=== PATIENT | male | born 1930 | race Caucasian/White ===

== ENCOUNTER 2017-03-07 22:25 | Emergency (ER) | payer MEDICARE ==
[~2017-03-07] VITALS: Ht 195.6 cm; Wt 108.9 kg
[~2017-03-07 22:25] MED LIST: ASPI-630 PO; CHOL500045 PO; CRESTOR5 MG PO; FOLI1TAB16 PO; METR55GE TP; OMEP20CA5 PO; POTA10TA17 PO; TAMS0.4C97 PO; WHEA1POW5 PO
[2017-03-07 22:30] VITALS: BP 123/54
--- NOTE | 2017-03-07 22:40 | ED.ADGEN ---
Past History Past Medical History: Arrhythmia, GERD, High Cholesterol, Heart Disease, Kidney Stones, Other Past Surgical History: Cancer Surgery, Colectomy, Other Smoking: Non-smoker Alcohol Use: Rarely Drug Use: None Adult General Chief Complaint Chief Complaint Nelson catheter not functioning [facility] HPI Patient is a 86 year old male who presents with for catheter not working. He states that he had a bladder stone that was worked on for 6 days ago and then Thursday there when he got his catheter but he still had some bleeding. His urologist Dr. Paz at [place]. Tonight about 9:30 he noticed no urine output from his catheter. He states the catheter had some faint pink urine prior to stopping. He denied any fevers chills nausea vomiting. He did have suprapubic discomfort. Review of Systems Review of Systems Constitutional: Denies fever or chills [] Eyes: Denies change in visual acuity, redness, or eye pain [] HENT: Denies nasal congestion or sore throat [] Respiratory: Denies cough or shortness of breath [] Cardiovascular: No additional information not addressed in HPI [] GI: Denies nausea, vomiting, bloody stools or diarrhe, positive for adominal pain [] : Denies dysuria positive for hematuria Musculoskeletal: Denies back pain or joint pain [] Integument: Denies rash or skin lesions [] Neurologic: Denies headache, focal weakness or sensory changes [] Endocrine: Denies polyuria or polydipsia [] Allergies Allergies Allergies Coded Allergies Type Severity Reaction Last Updated Verified penicillin Allergy Unknown 03/07/17 No Physical Exam Physical Exam Constitutional: Well developed, well nourished, no acute distress, non-toxic appearance. [] HENT: Normocephalic, atraumatic, bilateral external ears normal, oropharynx moist, no oral exudates, nose normal. [] Eyes: PERRLA, EOMI, conjunctiva normal, no discharge. [] Neck: Normal range of motion, no tenderness, supple, no stridor. [] Cardiovascular:Heart rate regular rhythm, no murmur [] Lungs & Thorax: Bilateral breath sounds clear to auscultation [] Abdomen: Bowel sounds normal, soft, no tenderness, no masses, no pulsatile masses. [] Skin: Warm, dry, no erythema, no rash. [] Back: No tenderness, no CVA tenderness. [] Extremities: No tenderness, no cyanosis, no clubbing, ROM intact, no edema. [] Neurologic: Alert and oriented X 3, normal motor function, normal sensory function, no focal deficits noted. [] Psychologic: Affect normal, judgement normal, mood normal. [] Current Patient Data Vital Signs Vital Signs Date Time Temp Pulse Resp B/P (MAP) Pulse Ox O2 Delivery O2 Flow Rate FiO2 03/07/17 22:30 98.5 67 20 95 Room Air Lab Results Laboratory Tests Test 03/07/17 23:20 White Blood Count 5.2 x10^3/uL (4.0-11.0) Red Blood Count 3.37 x10^6/uL (4.30-5.70) L Hemoglobin 12.1 g/dL (13.0-17.5) L Hematocrit 35.1 % (39.0-53.0) L Mean Corpuscular Volume 104 fL (79-100) H Mean Corpuscular Hemoglobin 36 pg (25-35) H Mean Corpuscular Hemoglobin Concent 34 g/dL (31-37) Red Cell Distribution Width 14.3 % (11.5-14.5) Platelet Count 304 x10^3/uL (140-400) Neutrophils (%) (Auto) 61 % (31-73) Lymphocytes (%) (Auto) 23 % (24-48) L Monocytes (%) (Auto) 16 % (0-9) H Eosinophils (%) (Auto) 0 % (0-3) Basophils (%) (Auto) 0 % (0-3) Neutrophils # (Auto) 3.2 x10^3uL (1.8-7.7) Lymphocytes # (Auto) 1.2 x10^3/uL (1.0-4.8) Monocytes # (Auto) 0.8 x10^3/uL (0.0-1.1) Eosinophils # (Auto) 0.0 x10^3/uL (0.0-0.7) Basophils # (Auto) 0.0 x10^3/uL (0.0-0.2) Urine Collection Type Void Urine Color [place] Urine Clarity Hazy Urine pH 5.5 Urine Specific [place] <=1.005 Urine Protein 100 mg/dl (NEG-TRACE) Urine Glucose (UA) Neg mg/dL (NEG) Urine Ketones (Stick) Neg mg/dL (NEG) Urine Blood Large (NEG) Urine Nitrite Neg (NEG) Urine Bilirubin Neg (NEG) Urine Urobilinogen Dipstick 0.2 mg/dL (0.2 mg/dL) Urine Leukocyte Esterase Small (NEG) Urine RBC >40 /HPF (0-2) Urine WBC 5-10 /HPF (0-4) Urine Squamous Epithelial Cells Few /LPF Urine Bacteria Few /HPF (0-FEW) Sodium Level 143 mmol/L (136-145) Potassium Level 3.8 mmol/L (3.5-5.1) Chloride Level 105 mmol/L (98-107) Carbon Dioxide Level 27 mmol/L (21-32) Anion Gap 11 (6-14) Blood Urea Nitrogen 17 mg/dL (8-26) Creatinine 1.3 mg/dL (0.7-1.3) Estimated GFR (Cockcroft-Gault) 52.3 BUN/Creatinine Ratio 13 (6-20) Glucose Level 139 mg/dL (70-99) H Calcium Level 8.8 mg/dL (8.5-10.1) Total Bilirubin 0.7 mg/dL (0.2-1.0) Aspartate Amino Transferase (AST) 22 U/L (15-37) Alanine Aminotransferase (ALT) 36 U/L (16-63) Alkaline Phosphatase 79 U/L (46-116) Total Protein 7.0 g/dL (6.4-8.2) Albumin 3.9 g/dL (3.4-5.0) Albumin/Globulin Ratio 1.3 (1.0-1.7) EKG EKG [] Radiology/Procedures Radiology/Procedures [] Course & Med Decision Making Course & Med Decision Making Pertinent Labs and Imaging studies reviewed. (See chart for details) His for catheter was removed had blood clots blocking it. He was able to urinate afterwards. He feels much better now. At this point we'll leave the Nelson catheter out and he is to follow-up with Dr. Paz. He is instructed if he can't urinate and feels similar symptoms of distention to return back to ER. He still taking his Cipro and he was prescribed. Return precautions given his agreeable to the plan and being discharged in stable condition this time. Final Impression Final Impression Nelson catheter dysfunction Problems: Charlene Disclaimer Dragon Disclaimer This electronic medical record was generated, in whole or in part, using a voice recognition dictation system. IVAN TORRES MD Mar 07, 2017 22:40
[2017-03-07] MEDS ORDERED: CIPR500T94 PO (23:16)
[2017-03-07 23:54] LABS: BASO % 0 % (0-3); EOS % 0 % (0-3); HEMATOCRIT 35.1 % (39.0-53.0); HEMOGLOBIN 12.1 g/dL (13.0-17.5); LYMPH # 1.2 x10^3/uL (1.0-4.8); LYMPH % 23 % (24-48); MEAN CORPUSCULAR HEMOGLOBIN 36 pg (25-35); MEAN CORPUSCULAR HGB CONC 34 g/dL (31-37); MEAN CORPUSCULAR VOLUME 104 fL (79-100); MONO # 0.8 x10^3/uL (0.0-1.1); MONO % 16 % (0-9); NEUT # 3.2 x10^3uL (1.8-7.7); NEUT % 61 % (31-73); PLATELET COUNT 304 x10^3/uL (140-400); RED BLOOD COUNT 3.37 x10^6/uL (4.30-5.70); RED CELL DISTRIBUTION WIDTH 14.3 % (11.5-14.5); WHITE BLOOD COUNT 5.2 x10^3/uL (4.0-11.0)
[2017-03-08 00:06] LABS: BILIRUBIN,URINE NEG (NEG); CLARITY,URINE HAZY; COLOR,URINE PINK; GLUCOSE,URINE NEG (NEG)
[2017-03-08 00:07] LABS: NITRITE,URINE NEG (NEG); UROBILINOGEN,URINE 0.2 mg/dL (0.2 mg/dL)
[2017-03-08 00:10] LABS: ALBUMIN 3.9 g/dL (3.4-5.0); ALBUMIN/GLOBULIN RATIO 1.3 (1.0-1.7); CALCIUM 8.8 mg/dL (8.5-10.1); CREATININE 1.3 mg/dL (0.7-1.3); GFR 52.3; POTASSIUM 3.8 mmol/L (3.5-5.1); TOTAL BILIRUBIN 0.7 mg/dL (0.2-1.0)
[2017-03-08 00:14] LABS: RBC,URINE >40 /HPF (0-2)
[2017-03-08 00:15] LABS: BACTERIA,URINE FEW /HPF (0-FEW); SQUAMOUS EPITHELIAL CELL,UR FEW /LPF
== END 2017-03-08 00:11 | disposition home or self-care (01) ==
LOC: ER 22:25
DX: T83.098A Other mechanical complication of other urinary catheter, initial encounter (principal); E78.00 Pure hypercholesterolemia, unspecified; Z87.442 Personal history of urinary calculi; K21.9 Gastro-esophageal reflux disease without esophagitis; Z88.0 Allergy status to penicillin
CPT/HCPCS: 36415; 80053; 81001; 85027; 87086; 87186; 99284-25

== ENCOUNTER 2017-03-08 07:33 | Emergency (ER) | payer MEDICARE ==
[~2017-03-08 07:33] MED LIST changes: +CIPR500T94 PO
[2017-03-08] MEDS ORDERED: LIDOCAINE 2% JELLY 10ML IN APPLICATOR. ONE (07:40)
--- NOTE | 2017-03-08 07:50 | ED.ADGEN ---
Past History Past Medical History: Arthritis, Arrhythmia, Cancer, GERD, High Cholesterol, Heart Disease, Kidney Stones, Other Past Surgical History: Cancer Surgery, Colectomy, Knee Replacement, Other Smoking: Non-smoker Alcohol Use: Rarely Drug Use: None Adult General HPI HPI Patient is an 86-year-old man, with a remote history of prostate cancer treated with surgery in the , who is status post renal calculi treatment, presumed lithotripsy, on of last week with Dr. Paz. Patient had a Nelson catheter in place after the procedure, and presented to the emergency department last night with blockage of the catheter due to a blood clot. Patient had the catheter removed, was able to void at that time, catheter was left out of the point. Patient is being treated with ciprofloxacin by Dr. Paz currently. Patient states that since the removal of the catheter he is "dribbling urine", and feels pressure in his bladder also he needs to go. He denies any pain in his abdomen or back, any fevers or chills, any nausea or vomiting, any swelling extremities, any injuries, any further patches of blood clots, states that the urine is red tinged. He denies any pain in the penile area, any flank pain, any chest pain, shortness breath or other complaints. He states he contacted Dr. Paz this morning, and was told to come back to the emergency department for replacement of Nelson catheter. Patient has an appointment to follow up with Dr. Paz tomorrow morning. Review of Systems Review of Systems Constitutional: Denies fever or chills [] Eyes: Denies change in visual acuity, redness, or eye pain [] HENT: Denies nasal congestion or sore throat [] Respiratory: Denies cough or shortness of breath [] Cardiovascular: No additional information not addressed in HPI [] GI: Denies abdominal pain, nausea, vomiting, bloody stools or diarrhea [] : Denies dysuria, positive for hematuria and uncontrolled voiding. Musculoskeletal: Denies back pain or joint pain [] Integument: Denies rash or skin lesions [] Neurologic: Denies headache, focal weakness or sensory changes [] Endocrine: Denies polyuria or polydipsia [] Current Medications Current Medications Current Medications Medications (Trade) Dose Ordered Sig/Cisco Start Time Stop Time Status Last Admin Dose Admin Lidocaine HCl (Uro-Jet) 1 asia 1X ONCE 6/4/17 08:00 03/08/17 08:01 Allergies Allergies Allergies Coded Allergies Type Severity Reaction Last Updated Verified penicillin Allergy Unknown 03/07/17 No Physical Exam Physical Exam Constitutional: Well developed, well nourished, no acute distress, non-toxic appearance. [] HENT: Normocephalic, atraumatic, bilateral external ears normal, oropharynx moist, no oral exudates, nose normal. [] Eyes: PERRLA, EOMI, conjunctiva normal, no discharge. [] Neck: Normal range of motion, no tenderness, supple, no stridor. [] Cardiovascular:Heart rate regular rhythm, no murmur, S1, S2, rubs or gallops. [] Lungs & Thorax: Denies breath sounds at bases, no wheezing, rhonchi, rales. [] Abdomen: Bowel sounds normal, soft, no tenderness, no rebound, rigidity, no guarding, no masses, no pulsatile masses. [] Skin: Warm, dry, no erythema, no rash. [] Back: No tenderness, no CVA tenderness. [] Extremities: No tenderness, no cyanosis, no clubbing, ROM intact, no edema. [] Neurologic: Alert and oriented X 3, normal motor function, normal sensory function, no focal deficits noted. [] Psychologic: Affect normal, judgement normal, mood normal. [] examination: Patient has an adult diaper in place with a small amount of reddish yellow urine that is drained. Patient is uncircumcised, foreskin easily retracted, glans penis is normal in appearance, with no evidence of discharge, drainage erythema or lesions identified. No tenderness to palpation in the genital region. No lymphadenopathy or other concerning findings. EKG EKG Not indicated. [] Radiology/Procedures Radiology/Procedures Not indicated. [] Course & Med Decision Making Course & Med Decision Making Pertinent Labs and Imaging studies reviewed. (See chart for details) Patient well-appearing, no evidence of acute abnormality on examination, Urojet applied, with passage of a 20 [place] catheter. Urine is draining freely, yellow , red tinged. Laboratory studies from last night reviewed, patient with a creatinine of 1.3 with electrolytes within normal limits, hemoglobin of 12.2, with no leukocytosis or shift, urinalysis reveals RBCs, few WBCs and a few bacteria. As stated patient is on ciprofloxacin as prescribed by Dr. Paz. Instructed to continue antibiotic course as prescribed. We discussed concerning symptoms that prompt return to the emergency department for additional evaluation, patient voiced understanding and agreement. Patient discharged home in stable condition with plan to follow-up with Dr. Paz tomorrow morning at 10 AM, and to return to the ED if any complications with the catheter develop. Final Impression Final Impression [] Problems: Dragon Disclaimer Dragon Disclaimer This electronic medical record was generated, in whole or in part, using a voice recognition dictation system. Departure: Impression: Primary Impression: Urinary complication, postoperative Disposition: HOME, SELF-CARE Condition: IMPROVED PATI BENDER DO Mar 08, 2017 07:50
[2017-03-08] MEDS ORDERED: LIDOCAINE 2% JELLY 10ML IN APPLICATOR. MM ONE (08:00)
[2017-03-08 08:10] VITALS: BP 127/83
== END 2017-03-08 08:12 | disposition home or self-care (01) ==
LOC: ER 07:33
DX: N99.89 Other postprocedural complications and disorders of genitourinary system (principal); K21.9 Gastro-esophageal reflux disease without esophagitis; E78.00 Pure hypercholesterolemia, unspecified; M19.90 Unspecified osteoarthritis, unspecified site; Z87.442 Personal history of urinary calculi; Z90.49 Acquired absence of other specified parts of digestive tract; Z88.0 Allergy status to penicillin
CPT/HCPCS: 51702; 99284-25

== ENCOUNTER 2017-04-20 20:56 | Emergency (ER) | payer MEDICARE ==
[~2017-04-20] VITALS: Ht 193 cm; Wt 102.1 kg
[2017-04-20 21:25] VITALS: BP 149/92
--- NOTE | 2017-04-20 22:27 | PHYS DOC ---
Past History Past Medical History: Prostatitis Past Surgical History: Cancer Surgery, Colectomy, Knee Replacement, Other Smoking: Non-smoker Alcohol Use: None Drug Use: None Adult General Chief Complaint Chief Complaint: URINARY RETENTION HPI HPI Patient is a 86-year-old man who has a history of prostate cancer, radiation, surgery, urinary retention, presents with a concern for urinary retention today. He had blood in his urine and then has not been able to urinate since this morning. He believes there may be a blood clot in his urethra. In the past , he has needed a Nelson when this happened. The patient happens to have a urology clinic appointment tomorrow. Review of Systems Review of Systems Constitutional: Denies fever or chills [] : As in history of present illness Allergies Allergies Allergies Coded Allergies Type Severity Reaction Last Updated Verified penicillin Allergy Unknown 04/20/17 No Physical Exam Physical Exam Constitutional: Well developed, well nourished, no acute distress, non-toxic appearance. Alert, mentating normally, no acute distress. Abdomen: Soft, nondistended, nontender : Circumcised male. No blood at meatus. Skin: Warm, dry, no erythema, no rash. [] Extremities: No tenderness, no cyanosis, no clubbing, ROM intact Neurologic: Alert and oriented X 3, normal motor function, normal sensory function, no focal deficits noted. [] Current Patient Data Vital Signs Vital Signs Date Time Temp Pulse Resp B/P (MAP) Pulse Ox O2 Delivery O2 Flow Rate FiO2 04/20/17 21:25 98.2 71 20 96 Room Air EKG EKG [] Radiology/Procedures Radiology/Procedures [] Course & Med Decision Making Course & Med Decision Making Pertinent Labs and Imaging studies reviewed. (See chart for details) Nelson catheter was placed by ED nursing staff. Urine appears cloudy to moderately bloody, no large clots are noted. Urine did flow freely into the Nelson bag. UA negative for UTI. Patient has an appointment with his urologist tomorrow. We talked about staying well-hydrated to keep his urine flowing freely. I offered him IV fluids but he thought he would rather drink fluids. [] Dragon Disclaimer Dragon Disclaimer This chart was dictated in whole or in part using Voice Recognition software in a busy, high-work load, and often noisy Emergency Department environment. It may contain unintended and wholly unrecognized errors or omissions. Departure Departure: Impression: Primary Impression: Acute urinary retention Additional Impression: Hematuria Disposition: 01 HOME, SELF-CARE Condition: IMPROVED Referrals: JOSE ARMANDO DONAHUE (PCP) Additional Instructions: As we discussed, drink plenty of fluids to keep your urine flowing freely to help keep blood clots from forming. If possible, drink 4-8 ounces of fluid every 2 hours or so overnight. See your urologist tomorrow as planned. Be sure to keep the catheter bag below the level of your bladder at all times so it can drain with gravity. Problem Qualifiers LALA PAVON MD Apr 20, 2017 22:27
[2017-04-20 22:35] LABS: BILIRUBIN,URINE NEG (NEG); CLARITY,URINE TURBID; COLOR,URINE BROWN; GLUCOSE,URINE NEG (NEG)
[2017-04-20 22:36] LABS: BACTERIA,URINE 0 /HPF (0-FEW); NITRITE,URINE NEG (NEG); RBC,URINE TNTC /HPF (0-2); UROBILINOGEN,URINE 0.2 mg/dL (0.2 mg/dL); WBC,URINE 0 /HPF (0-4)
== END 2017-04-20 23:05 | disposition home or self-care (01) ==
LOC: ER 20:56
DX: R33.9 Retention of urine, unspecified (principal); R31.9 Hematuria, unspecified; Z88.0 Allergy status to penicillin
CPT/HCPCS: 51702; 81001; P9612; 99284-25

== ENCOUNTER → 2017-05-22 | Outpatient (CLI) | payer MEDICARE, BC ==
--- NOTE | 2017-05-22 14:57 | RAD ---
Right RIBS with chest, 3 views, 05/22/2017: History: Fall, pain There is a chronic defect in the lateral aspect of the right seventh rib which is probably postsurgical. There is mild overlying pleural thickening. No acute rib abnormality is detected. There is no evidence of underlying pneumothorax, hemothorax or pulmonary infiltrate. The heart is mildly enlarged. There is calcific plaquing and tortuosity of the thoracic aorta. There are moderate scattered spurs in the spine. IMPRESSION: 1. 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 2. No acute right rib abnormality is detected.
== END | disposition home or self-care (01) ==
LOC: DXRADRC 14:25
PROVIDERS: ATTEND Physician Assistant
DX: I51.7 Cardiomegaly (principal); M95.4 Acquired deformity of chest and rib; R07.81 Pleurodynia; M25.511 Pain in right shoulder; I70.0 Atherosclerosis of aorta; W19.XXXA Unspecified fall, initial encounter; Y93.89 Activity, other specified; Y92.89 Other specified places as the place of occurrence of the external cause; Y99.8 Other external cause status
CPT/HCPCS: 71101

== ENCOUNTER → 2017-08-07 | Outpatient (CLI) | payer MEDICARE ==
--- NOTE | 2017-08-07 10:35 | RAD ---
CT of the paranasal sinuses without contrast, 08/07/2017: History: Recurrent sinusitis Noncontrast scans were obtained with multiplanar reconstructions produced. There is extensive mucosal thickening in both maxillary sinuses, involving the ostiomeatal complexes bilaterally. There is moderate mucosal thickening in both ethmoid sinuses and the left sphenoid sinus. There is mucosal thickening in both frontal sinuses, more so on the right. Air-fluid levels are present, best seen in both maxillary sinuses and the right frontal sinus. No underlying bony abnormality is detected. There is slight deviation of the nasal septum to the left of midline. The orbital contents are unremarkable. IMPRESSION: Extensive paranasal pansinusitis as described above. PQRS Compliance Statement: One or more of the following individualized dose reduction techniques were utilized for this examination: 1. Automated exposure control 2. Adjustment of the mA and/or kV according to patient size 3. Use of iterative reconstruction technique
== END | disposition home or self-care (01) ==
LOC: CT 10:06
PROVIDERS: ATTEND Physician Assistant
DX: J32.0 Chronic maxillary sinusitis (principal); J32.4 Chronic pansinusitis; J34.2 Deviated nasal septum
CPT/HCPCS: 70486

== ENCOUNTER → 2017-09-22 | Outpatient (CLI) | payer MEDICARE ==
--- NOTE | 2017-09-22 11:09 | RAD ---
Indication: Sinusitis. Axial imaging through the paranasal sinuses was performed without contrast. Sagittal and coronal reformations were also performed. Comparison is made with prior CT of the sinuses from 08/07/2017. Moderate mucosal thickening of the frontal sinus is noted, similar to prior exam. There is also fairly significant mucosal thickening and opacification of bilateral ethmoid air cells, similar to prior exam. Minimal mucosal thickening of the sphenoid sinus is seen, similar to perhaps minimally improved since prior. There is mucosal thickening of bilateral maxillary sinuses. There has been some improvement in the right maxillary sinus which is more aerated on today's study. There has also been some improvement in the left maxillary sinus with less mucosal thickening. The ostiomeatal complexes again show abnormal thickening. The mastoids are well aerated. Impression: Overall mild improvement in sinusitis when compared with examination from 08/07/2017. In particular, there is improved aeration to the maxillary sinuses. However, moderate paranasal sinus disease remains. PQRS Compliance Statement: One or more of the following individualized dose reduction techniques were utilized for this examination: 1. Automated exposure control 2. Adjustment of the mA and/or kV according to patient size 3. Use of iterative reconstruction technique
== END | disposition home or self-care (01) ==
LOC: CT 10:26
PROVIDERS: ATTEND Physician Assistant
DX: J32.4 Chronic pansinusitis (principal)
CPT/HCPCS: 70486

== ENCOUNTER 2017-12-13 15:01 | Emergency (ER) | payer MEDICARE ==
[~2017-12-13] VITALS: Ht 193 cm; Wt 102.1 kg
[2017-12-13 15:12] VITALS: BP 114/83
[2017-12-13] MEDS ORDERED: IV NORMAL SALINE 1,000ML 1,000 ML IV SCH (15:26)
--- NOTE | 2017-12-13 15:37 | PHYS DOC ---
Past History Past Medical History: Cancer, Prostatitis Additional Past Medical Histor: thrombocytopenia Past Surgical History: Cancer Surgery, Colectomy, Knee Replacement, Other Smoking: Non-smoker, Cigarettes, Quit Greater Than 1 Year Alcohol Use: None Drug Use: None Adult General Chief Complaint Chief Complaint: FEVER [facility] HPI Patient is a pleasant 87-year-old male who is complaining of fever and myalgias for last several days. Patient was seen and screened on for similar symptoms had a negative flu swab in the office of his primary care doctor is supposed to undergo sinus surgery tomorrow but given his symptoms and continued fevers to 102 at home patient decided to come to the hospital. All last several days. Has developed increasingly productive cough with nasal congestion and mild sore throat with cough. He denies any ear pain or ear drainage, his fevers only been 102 orally at home and is been taking Tylenol to treat those fevers. Patient admits he is on Lupron every 3 months for his prostate cancer he is not on active chemotherapy or otherwise this time. Patient met he also is on hydroxyurea for essential tremors cytopenia. Patient is not on any kind of treatment for hypertension, hyperlipidemia or diabetes. Patient has had sick contacts home especially flu with his in the last several weeks. He is on antibiotics would not in the last 4-6 weeks. Is not on steroids at this time he is on probiotics only. He denies any specific joint pain he just aches everywhere. He describes more myalgias and generalized weakness with this fever. He has no headache no focal neurologic deficits and no change in vision. Patient has had no other change in mental status with the at the bedside Review of Systems Review of Systems Constitutional: Positive for fevers and chills Eyes: Denies change in visual acuity, redness, or eye pain [] HENT: Positive for nasal congestion negative for sore throat[] Respiratory: Positive for productive cough negative for shortness of breath[] Cardiovascular: No additional information not addressed in HPI [] GI: Denies abdominal pain, nausea, vomiting, bloody stools or diarrhea [] : Denies dysuria or hematuria [] Musculoskeletal: Positive for generalized myalgias and joint pains[] Integument: Denies rash or skin lesions positive for diaphoresis [] Neurologic: Denies headache, focal weakness or sensory changes positive for generalized weakness with no focal neurologic deficits[] Endocrine: Denies polyuria or polydipsia [] All other systems were reviewed and found to be within normal limits, except as documented in this note. Current Medications Current Medications Current Medications Medications (Trade) Dose Ordered Sig/Cisco Start Time Stop Time Status Last Admin Dose Admin Ibuprofen (Motrin) 200 mg 1X ONCE 12/13/17 15:30 12/13/17 15:31 UNV Sodium Chloride (Normal Saline Flush) 10 ml QSHIFT PRN 12/13/17 15:30 UNV Allergies Allergies Allergies Coded Allergies Type Severity Reaction Last Updated Verified penicillin Allergy Unknown 04/20/17 No Physical Exam Physical Exam Patient is afebrile on exam but is fairly diaphoretic, he is also mildly hypertensive which is new for patient patient is not tachycardic or tachypneic. Constitutional: Well developed, well nourished, no acute distress, non-toxic appearance. Patient shows mild diaphoresis and mildly pale but in no acute distress [] HENT: Normocephalic, atraumatic, bilateral external ears normal, oropharynx dry with erythema but no tonsillar hypertrophy , no oral exudates, nose clear rhinorrhea without evidence of boggy turbinates, TMs are clear bilaterally[] Eyes: PERRLA, EOMI, conjunctiva normal, no discharge. [] Neck: Normal range of motion, no tenderness, supple, no stridor. No cervical lymphadenopathy [] Cardiovascular:Heart rate regular rhythm, no murmur [] Lungs & Thorax: Bilateral breath sounds clear to auscultation questionable rhonchi at the left base with exhalation[] Skin: Warm, diaphoretic no erythema, no rash. [] Back: No tenderness, no CVA tenderness. [] Extremities: No tenderness, no cyanosis, no clubbing, ROM intact, no edema. [] Neurologic: Alert and oriented X 3, normal motor function, normal sensory function, no focal deficits noted. [No specific joint swelling or redness. No rash noted] Psychologic: Affect normal, judgement normal, mood normal. [] Current Patient Data Lab Results Laboratory Tests Test 12/13/17 11:55 12/13/17 15:25 White Blood Count 12.3 x10^3/uL (4.0-11.0) H Red Blood Count 3.38 x10^6/uL (4.30-5.70) L Hemoglobin 12.0 g/dL (13.0-17.5) L Hematocrit 35.2 % (39.0-53.0) L Mean Corpuscular Volume 104 fL (79-100) H Mean Corpuscular Hemoglobin 35 pg (25-35) Mean Corpuscular Hemoglobin Concent 34 g/dL (31-37) Red Cell Distribution Width 15.0 % (11.5-14.5) H Platelet Count 572 x10^3/uL (140-400) H Neutrophils (%) (Auto) 78 % (31-73) H Lymphocytes (%) (Auto) 9 % (24-48) L Monocytes (%) (Auto) 13 % (0-9) H Eosinophils (%) (Auto) 0 % (0-3) Basophils (%) (Auto) 0 % (0-3) Neutrophils # (Auto) 9.6 x10^3uL (1.8-7.7) H Lymphocytes # (Auto) 1.1 x10^3/uL (1.0-4.8) Monocytes # (Auto) 1.6 x10^3/uL (0.0-1.1) H Eosinophils # (Auto) 0.0 x10^3/uL (0.0-0.7) Basophils # (Auto) 0.0 x10^3/uL (0.0-0.2) Sodium Level 138 mmol/L (136-145) Potassium Level 4.0 mmol/L (3.5-5.1) Chloride Level 102 mmol/L (98-107) Carbon Dioxide Level 25 mmol/L (21-32) Anion Gap 11 (6-14) Blood Urea Nitrogen 25 mg/dL (8-26) Creatinine 2.0 mg/dL (0.7-1.3) H Estimated GFR (Cockcroft-Gault) 31.8 Glucose Level 112 mg/dL (70-99) H Lactic Acid Level 1.4 mmol/L (0.4-2.0) Calcium Level 9.2 mg/dL (8.5-10.1) Magnesium Level 1.8 mg/dL (1.8-2.4) Total Bilirubin 2.3 mg/dL (0.2-1.0) H Direct Bilirubin 0.6 mg/dL (0.0-0.2) H Aspartate Amino Transferase (AST) 25 U/L (15-37) Alanine Aminotransferase (ALT) 20 U/L (16-63) Alkaline Phosphatase 62 U/L (46-116) Troponin I Quantitative < 0.017 ng/mL (0-0.055) EZ-Vcq-I-Type Natriuretic Peptide 1559 pg/mL (0-449) H Total Protein 7.2 g/dL (6.4-8.2) Albumin 3.5 g/dL (3.4-5.0) Influenza Type A (Rapid) Negative (NEGATIVE) Influenza Type B (Rapid) Negative (NEGATIVE) EKG EKG []Patient's EKG read by me 4:59 PM there are 12/13/2017 demonstrates sinus rhythm of 75 LA interval 170 which is normal, QRS width is 128 which is mildly elongated there is incomplete right bundle branch block in v1 patient's QTc is 465 which is normal, this is an abnormal EKG but there is no ST segment or T- wave changes consistent with acute coronary ischemia. Radiology/Procedures Radiology/Procedures [] [place] [address] IMAGING REPORT Signed PATIENT: HELEN SANDOVAL ACCOUNT: [id number] : 1930 LOCATION: ER AGE: 87 SEX: M EXAM STATUS: REG ER ORD. PHYSICIAN: RUDDY DOVER MD REASON: fever unclear etiology PROCEDURE: CHEST PA & LATERAL PA and lateral chest. History: Fever, cough PA and lateral views were taken of the chest. There is mild atelectasis or infiltrate in the left lung base. There is pleural thickening on the right and scarring without change. The heart is normal in size. There is no pleural effusion. Impression: 1. Mild left lung base linear atelectasis or infiltrate. DICTATED AND SIGNED BY: LIZ DOWLING MD DATE: 12/13/17 1546 CC: RUDDY DOVER MD; JOSE ARMANDO DONAHUE ~ Course & Med Decision Making Course & Med Decision Making Pertinent Labs and Imaging studies reviewed. (See chart for details) []Patient presents with fevers and general myalgias with influenza exposure at home. Patient is on Lupron and hydroxyurea although he is not on a recent course of Lupron many of his symptoms could be contributed The Lupron Side Effects. We Will Continue to Look for Signs of Infection Causing This Patient's Low-Grade Fever of 102.1 Patient's chest x-ray was read by me read by radiology based on physical exam findings and rhonchi at the bases of the left lung patient has atelectasis or likely an early infiltrate based on my physical exam findings and the x-ray. Upon discovering this positive film finding about 4:10 PM I discussed this with the elderly with the family at bedside. Because patient looks so fine he actually preferred to go home I think the is reluctant to let him go home although he is not hypoxic, he is afebrile now he still feels relatively weak and not eating well. I will give him a dose of IV ciprofloxacin here in the emergency room for suspected community acquired pneumonia. Patient's initial troponin, is negative patient's lactic acid levels 1.4 which is normal. Patient's CBC demonstrated a left shift with an elevation of white count 12.3 thousand with also a mild anemia at 12 and 33 which is not low enough to require specific transfusion he also has an elevated thrombocytopenia which is typical for patient which is why he is on the hydroxyurea. Patient's laboratory work otherwise is within normal limits within the CBC. Patient was a & B swab are negative, After some continued discussion family would like to go home and be treated as an outpatient and follow-up with her primary care doctor tomorrow. I also passed along to the family the patient had some mild renal consultation with a creatinine of 2 although his BUN is normal his CMP is otherwise unremarkable as well. This may be chronic in nature although I have no other record of a creatinine this high. I'll encourage follow-up and retesting within the next week. Patient will be given some Zofran to make sure that he can keep his medications down and is encouraged to return if he has any questions or concerns or any problems with worsening symptoms worsening shortness of breath or other questions or concerns. discharge: I've spoken with the patient and/or caregivers. I've explained the patient's condition, diagnosis and treatment plan based on information available to me at this time. I've answered the patient's and/or caregivers questions and addressed any concerns. The patient and/or caregivers have a good understanding the patient's diagnosis, condition and treatment plan as can be expected at this point. Vital signs have been stabilized. The patient's condition is stable for discharge from the emergency department. The patient will pursue further outpatient evaluation with her primary care provider or other designated consulting physician as outlined in the discharge instructions. Patient and/or caregivers are agreeable to this plan of care and follow-up instructions have been explained in detail. The patient and/or caregivers have received these instructions in written format and expressed understanding of these discharge instructions. The patient and her caregivers are aware that if any significant change in condition or worsening of symptoms should prompt him to immediately return to this of the closest emergency department. If an emergent department is not readily available I would encourage him to call 911. Dragon Disclaimer Dragon Disclaimer This electronic medical record was generated, in whole or in part, using a voice recognition dictation system. Departure Departure: Impression: Primary Impression: Pneumonia Additional Impression: Renal insufficiency Disposition: HOME, SELF-CARE Condition: STABLE Referrals: JOSE ARMANDO DONAHUE (PCP) Patient Instructions: Pneumonia, Adult Additional Instructions: discharge: I've spoken with the patient and/or caregivers. I've explained the patient's condition, diagnosis and treatment plan based on information available to me at this time. I've answered the patient's and/or caregivers questions and addressed any concerns. The patient and/or caregivers have a good understanding the patient's diagnosis, condition and treatment plan as can be expected at this point. Vital signs have been stabilized. The patient's condition is stable for discharge from the emergency department. The patient will pursue further outpatient evaluation with her primary care provider or other designated consulting physician as outlined in the discharge instructions. Patient and/or caregivers are agreeable to this plan of care and follow-up instructions have been explained in detail. The patient and/or caregivers have received these instructions in written format and expressed understanding of these discharge instructions. The patient and her caregivers are aware that if any significant change in condition or worsening of symptoms should prompt him to immediately return to this of the closest emergency department. If an emergent department is not readily available I would encourage him to call 911. you were offered admission at the bedside by the emergency physician jennifer if he would like to come back at any time to complete that admission please do so immediately or if you have any question concerns for free to call the emergency department we can discuss treatment plans. Please follow-up with your doctor tomorrow if symptoms are not improved with therapy's needed antibiotics initiated from the emergency department. Scripts Ondansetron (ZOFRAN ODT) 4 Mg Tab.rapdis 1 TAB SL Q8HRS, #15 TAB Prov: RUDDY DOVER MD 12/13/17 Guaifenesin/Dextromethorphan (MUCINEX DM ER 1,200-60 MG TAB) 1 Each Tbmp.12hr 1 TAB PO BID, #20 TAB 1 Refill Prov: RUDDY DOVER MD 12/13/17 Naproxen Sodium (NAPROXEN SODIUM) 275 Mg Tablet 275 MG PO BID for 7 Days, #14 TAB Prov: RUDDY DOVER MD 12/13/17 Acetaminophen (TYLENOL) 325 Mg Tablet 1-2 TAB PO QID, #30 TAB 2 Refills Prov: RUDDY DOVER MD 12/13/17 Ciprofloxacin Hcl (CIPROFLOXACIN HCL) 500 Mg Tablet 1 TAB PO BID, #20 TAB Prov: RUDDY DOVER MD 12/13/17 Problem Qualifiers RUDDY DOVER MD Dec 13, 2017 15:37
--- NOTE | 2017-12-13 15:51 | RAD ---
PA and lateral chest. History: Fever, cough PA and lateral views were taken of the chest. There is mild atelectasis or infiltrate in the left lung base. There is pleural thickening on the right and scarring without change. The heart is normal in size. There is no pleural effusion. Impression: 1. Mild left lung base linear atelectasis or infiltrate.
[2017-12-13 15:58] LABS: INFLUENZA A PATIENT NEGATIVE (NEGATIVE); INFLUENZA B PATIENT NEGATIVE (NEGATIVE)
[2017-12-13] MEDS ORDERED: 0.9 % SODIUM CHLORIDE 10 ML DISP.SYRIN. IV PRN (16:00)
[2017-12-13] MEDS ORDERED: IBUPROFEN 200 MG TABLET PO ONE (16:00)
[2017-12-13 16:12] LABS: BASO % 0 % (0-3); EOS % 0 % (0-3); HEMATOCRIT 35.2 % (39.0-53.0); LYMPH # 1.1 x10^3/uL (1.0-4.8); LYMPH % 9 % (24-48); MEAN CORPUSCULAR HEMOGLOBIN 35 pg (25-35); MEAN CORPUSCULAR HGB CONC 34 g/dL (31-37); MEAN CORPUSCULAR VOLUME 104 fL (79-100); MONO # 1.6 x10^3/uL (0.0-1.1); MONO % 13 % (0-9); NEUT # 9.6 x10^3uL (1.8-7.7); NEUT % 78 % (31-73); PLATELET COUNT 572 x10^3/uL (140-400); RED BLOOD COUNT 3.38 x10^6/uL (4.30-5.70); WHITE BLOOD COUNT 12.3 x10^3/uL (4.0-11.0)
[2017-12-13] MEDS ORDERED: ONDANSETRON PF 4 MG/2 ML VIAL. ONE (16:18)
[2017-12-13 16:38] LABS: ALBUMIN 3.5 g/dL (3.4-5.0); CALCIUM 9.2 mg/dL (8.5-10.1); DIRECT BILIRUBIN 0.6 mg/dL (0.0-0.2); GFR 31.8; MAGNESIUM 1.8 mg/dL (1.8-2.4); TOTAL BILIRUBIN 2.3 mg/dL (0.2-1.0); TOTAL PROTEIN 7.2 g/dL (6.4-8.2)
[2017-12-13] MEDS ORDERED: GUAI1TBM10 PO (16:39)
[2017-12-13] MEDS ORDERED: ACET325T9 PO (16:39)
[2017-12-13] MEDS ORDERED: CIPR500T PO (16:39)
[2017-12-13] MEDS ORDERED: NAPR275T59 PO (16:39)
[2017-12-13] MEDS ORDERED: ONDA4TAB10 SL (16:52)
[2017-12-13] MEDS ORDERED: CIPROFLOXACIN 400MG PREMIX 200 ML IV ONE (17:00)
--- NOTE | 2017-12-14 02:50 | EKG ---
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
== END 2017-12-13 18:15 | disposition home or self-care (01) ==
LOC: ER 15:01
DX: J18.9 Pneumonia, unspecified organism (principal); N28.9 Disorder of kidney and ureter, unspecified; Z86.2 Personal history of diseases of the blood and blood-forming organs and certain disorders involving the immune mechanism; Z87.891 Personal history of nicotine dependence; Z88.0 Allergy status to penicillin
CPT/HCPCS: 36415; 71046; 80048; 80076; 83605; 83735; 83880; 84443; 84484; 85025; 87804; 93005; 96361; 96365; 99285; J0744; J7030

== ENCOUNTER → 2017-12-16 | Outpatient (CLI) | payer MEDICARE ==
[2017-12-13 15:12] VITALS: BP 114/83
[~2017-12-16] MED LIST changes: +ACET325T9 PO; +CIPR500T PO; +GUAI1TBM10 PO; +NAPR275T59 PO; +ONDA4TAB10 SL
--- NOTE | 2017-12-16 14:20 | RAD ---
Abdomen, 2 views, 12/16/2017: History: Abdominal pain with nausea Gas is present in large and small bowel in a nonspecific pattern. No free air is seen in the abdomen. There is no evidence of organomegaly. Extensive arterial calcifications are present. Moderate multilevel degenerative change is present in the spine. There are sclerotic changes at both sacroiliac joints. IMPRESSION: No acute abdominal abnormality is detected.
== END | disposition home or self-care (01) ==
LOC: PMG 13:47
PROVIDERS: ATTEND Physician Assistant
DX: R11.0 Nausea (principal); R10.9 Unspecified abdominal pain; I70.0 Atherosclerosis of aorta; E78.00 Pure hypercholesterolemia, unspecified; K21.9 Gastro-esophageal reflux disease without esophagitis; Z87.891 Personal history of nicotine dependence
CPT/HCPCS: 74021

== ENCOUNTER → 2018-02-23 | Outpatient (CLI) | payer MEDICARE ==
--- NOTE | 2018-02-23 15:57 | RAD ---
PA and lateral chest radiograph. History: Cough, back pain. Comparison: December 13, 2017. Findings: Cardiomediastinal silhouette is within normal limits for size. No pneumothorax is seen. There is blunting of the right costophrenic angle, could represent small pleural effusion versus pleural thickening. There is interval development of increased density involving the right mid lung on the frontal image. This is not seen on previous study. There also may be discontinuity of the right posterior 6th rib. There is a pre-existing deformity of the right chest wall. Impression: 1. Abnormal appearance to the right lung field on the frontal image. There also appears to be discontinuity of a right rib. Presence of mass is possible versus loculated pleural effusion. Recommend further evaluation with CT chest with intravenous contrast. Electronically signed by: Roland Hsu MD (02/23/2018 3:54 PM) [facility]
== END | disposition home or self-care (01) ==
LOC: PMG 09:48
PROVIDERS: ATTEND Physician Assistant
DX: M54.6 Pain in thoracic spine (principal); E78.00 Pure hypercholesterolemia, unspecified; R05 Cough
CPT/HCPCS: 71046

== ENCOUNTER → 2018-03-12 | Outpatient (CLI) | payer MEDICARE ==
[2018-03-12 11:57] LABS: GFR 31.8
--- NOTE | 2018-03-12 13:43 | RAD ---
CT chest without intravenous contrast History: History of prostate cancer. Possible lung mass. Comparison: Chest radiograph February 23, 2018 Technique: Helical CT of the chest was performed without intravenous contrast. No intravenous contrast was administered secondary to impaired renal function. Exposure: One or more of the following individualized dose reduction techniques were utilized for this examination: 1. Automated exposure control 2. Adjustment of the mA and/or kV according to patient size 3. Use of iterative reconstruction technique Findings: Trachea and mainstem bronchi appear patent. Coronary artery calcification are seen. Cardiac chambers appear within normal limits for size. No mediastinal lymphadenopathy is seen. No convincing hilar lymphadenopathy is appreciated. Visualized thyroid is small, but symmetric. Mild emphysematous changes of lungs are seen. Irregular soft tissue nodule is seen in the right upper lobe measuring 1.6 cm (axial image 28). The medial right lower lobe demonstrates 1.1 cm soft tissue nodule (axial image 80). Left lower lobe adjacent to the fissure demonstrates 0.8 cm nodule (axial image 50). Posterior right lower lobe demonstrates soft tissue pulmonary nodule measuring 1.8 cm (axial image 59). Right lower lobe adjacent to the pericardium demonstrates 1.3 cm pulmonary nodule (axial image 70). Multiple additional bilateral pulmonary nodules are seen. There is a large lytic soft tissue mass centered on the right posterior 6th rib. Mass measures approximately 4.3 x 3.2 cm in axial dimension x 4.4 cm in craniocaudal dimension and the represents the radiographic abnormality. A few old right rib fractures are seen. Impression: 1. Multiple bilateral pulmonary nodules. 2. Large expansile, lytic lesion centered at the right 6th rib. 3. Given history of prostate cancer, metastatic disease to the chest from prostate cancer would be most likely etiology, although lytic bone lesions in the setting of prostate cancer are atypical. Alternative, less likely etiology is thought to be different primary malignancy such as colon or lung cancer. Electronically signed by: Roland Hsu MD (03/12/2018 1:39 PM) [place] [id number]
== END | disposition home or self-care (01) ==
LOC: CT 10:51
PROVIDERS: ATTEND Physician Assistant
DX: R91.8 Other nonspecific abnormal finding of lung field (principal); Z85.46 Personal history of malignant neoplasm of prostate
CPT/HCPCS: 36415; 71250; 82565; 84520

== ENCOUNTER → 2018-03-13 | Outpatient (CLI) | payer MEDICARE ==
--- NOTE | 2018-03-13 10:18 | RAD ---
Right foot, 2 views, 03/13/2018: HISTORY: Foot pain There is mild patchy bony demineralization. There is a mild hallux valgus deformity with mild degenerative change at the first MTP joint. Mild spurring is present the mid foot level. No fracture or dislocation is identified. No destructive bony lesion is seen. Moderate arterial calcifications are evident. Subcutaneous edema is noted. IMPRESSION: 1. Demineralization. 2. Mild hallux valgus deformity. 3. Mild scattered degenerative changes. Electronically signed by: Josh Alarcon MD (03/13/2018 10:14 AM) [facility]
--- NOTE | 2018-03-13 10:20 | RAD ---
Left hip, 2 views, 03/13/2018: History: Hip pain The bony structures are demineralized. No fracture or dislocation is identified. The hip joint space is minimally narrowed with minimal marginal spurring. There are moderate arthritic changes at the symphysis pubis and left sacroiliac joint. Moderate arterial calcifications are present. IMPRESSION: 1. Bony demineralization. 2. Mild degenerative change. 3. No acute left hip abnormality is detected.
== END | disposition home or self-care (01) ==
LOC: RAD 08:25
PROVIDERS: ATTEND Physician Assistant
DX: M70.62 Trochanteric bursitis, left hip (principal); M81.8 Other osteoporosis without current pathological fracture; M20.11 Hallux valgus (acquired), right foot
CPT/HCPCS: 73502; 73620

== ENCOUNTER 2018-03-18 15:09 | Emergency (ER) | payer MEDICARE ==
[~2018-03-18] VITALS: Ht 195.6 cm; Wt 99.8 kg
[2018-03-18] MEDS ORDERED: ACETAMINOPHEN 500 MG TABLET PO ONE (15:30)
[2018-03-18] MEDS ORDERED: IV NORMAL SALINE 1,000ML 1,000 ML IV ONE (15:30)
--- NOTE | 2018-03-18 15:34 | PHYS DOC ---
Past History Past Medical History: Cancer, Prostatitis Additional Past Medical Histor: thrombocytopenia Past Surgical History: Other Smoking: Non-smoker, Cigarettes, Quit Greater Than 1 Year Alcohol Use: None Drug Use: None Adult General Chief Complaint Chief Complaint: HIP PAIN [facility] HPI Patient is a very pleasant 87-year-old male presents for evaluation of fever which she noticed today. He has had some left hip pain for about 3 weeks and recently had an injection for bursitis however he does not feel like the hip pain has become worse since the fever today to be at baseline. He has been coughing does feel slightly short of breath. He also has bilateral nephrostomy tubes which are placed at . He gets treated every 3 months with Lupron for prostate cancer. His oncologist and cane pusher are at . He is alert and oriented 3, calm, and appears to be no distress. He feels very warm to touch his temperature is 102F. He denies headache, neck pain or stiffness, vision changes, chest pain, back or flank pain, abdominal pain, dysuria, nausea or vomiting, diaphoresis, dizziness or syncope. Review of Systems Review of Systems Constitutional: +fevers/chills Eyes: Denies change in visual acuity, redness, or eye pain [] HENT: Denies nasal congestion or sore throat [] Respiratory: +cough, mild sob Cardiovascular: No additional information not addressed in HPI [] GI: Denies abdominal pain, nausea, vomiting, bloody stools or diarrhea [] : Denies dysuria or hematuria [] Musculoskeletal: Denies back pain or joint pain [] Integument: Denies rash or skin lesions [] Neurologic: Denies headache, focal weakness or sensory changes [] Endocrine: Denies polyuria or polydipsia [] All other systems were reviewed and found to be within normal limits, except as documented in this note. Allergies Allergies Allergies Coded Allergies Type Severity Reaction Last Updated Verified penicillin Allergy Unknown 04/20/17 No Physical Exam Physical Exam Constitutional: Well developed, well nourished, no acute distress, non-toxic appearance. Feels very warm to touch HENT: Normocephalic, atraumatic, bilateral external ears normal, oropharynx moist, no oral exudates, nose normal. [] Eyes: PERRLA, EOMI, conjunctiva normal, no discharge. [] Neck: Normal range of motion, no tenderness, supple, no stridor. [] Cardiovascular:+tachycardia, no murmur [] Lungs & Thorax: Bilateral breath sounds clear to auscultation [] Abdomen: Bowel sounds normal, soft, no tenderness, no masses, no pulsatile masses. [] Skin: Warm, dry, no erythema, no rash. [] Back: No tenderness, no CVA tenderness. [] B/L nephrostomy tubes in place Extremities: No tenderness, no cyanosis, no clubbing, ROM intact, no edema. [] Left hip unremarkable, FROM present Neurologic: Alert and oriented X 3, normal motor function, normal sensory function, no focal deficits noted. [] Psychologic: Affect normal, judgement normal, mood normal. [] EKG EKG Sinus tachycardia, rate of 104, some left axis deviation is noted, no acute ischemic findings, no STEMI, incomplete right bundle-branch block is present, reviewed and interpreted by myself Radiology/Procedures Radiology/[place] [address] IMAGING REPORT Signed PATIENT: HELEN SANDOVAL ACCOUNT: [id number] : 1930 LOCATION: ER AGE: 87 SEX: M EXAM STATUS: REG ER ORD. PHYSICIAN: PENNY HARVEY DO REASON: FEVER, COUGH, HYPOXIA PROCEDURE: CHEST PA & LATERAL Chest radiograph 03/18/2018 4:05 PM INDICATION: Fever, hypoxia COMPARISON: Chest radiograph February 23, 2018 TECHNIQUE: Frontal and lateral views of the chest are provided. FINDINGS: The cardiomediastinal silhouette is within normal limits. Right upper lobe patchy airspace disease may represent pulmonary infiltrate. Mild interstitial changes are noted at the lung bases, likely chronic. There are no pleural effusions. No pulmonary vascular congestion or pneumothorax.. IMPRESSION: Suspect a right upper lobe pulmonary infiltrate. Short-term follow-up two-view chest radiograph is recommended to enter resolution. There may be underlying nodular airspace disease which appears chronic in the right upper lobe. Bibasilar chronic interstitial changes appears stable. Electronically signed by: Ab Stack MD (03/18/2018 4:16 PM) [facility] DICTATED AND SIGNED BY: AB STACK MD DATE: 03/18/18 7451 CC: PENNY HARVEY DO; JOSE ARMANDO DONAHUE ~ Course & Med Decision Making Course & Med Decision Making Pertinent Labs and Imaging studies reviewed. (See chart for details) @1700 - Patient and family updated on lab and imaging results. They agree with the plan to transfer to . The patient does have urinary tract infection and has bilateral nephrostomy tubes. As I am told there is no nephrology, infectious disease, or oncology here we will transfer the patient to . @1710 - Case d/w transfer line. They will discuss with a physician and call back. @1725 - Dr. Baltazar accepts the transfer to at this time. Dragon Disclaimer Dragon Disclaimer This electronic medical record was generated, in whole or in part, using a voice recognition dictation system. Departure Departure: Impression: Primary Impression: Sepsis Additional Impressions: Acute UTI Nephrostomy status Fever Thrombocytosis Disposition: 05 XFER OTHER ([facility] 0 ) Condition: STABLE Referrals: JOSE ARMANDO DONAHUE (PCP) Problem Qualifiers PENNY HARVEY DO Mar 18, 2018 15:34
--- NOTE | 2018-03-18 15:45 | EKG ---
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
[2018-03-18] MEDS ORDERED: KETOROLAC 30 MG/ML VIAL. IV ONE (16:00)
[2018-03-18 16:17] LABS: BASO # 0.1 x10^3/uL (0.0-0.2); BASO % 1 % (0-3); EOS % 0 % (0-3); HEMATOCRIT 31.3 % (39.0-53.0); HEMOGLOBIN 10.2 g/dL (13.0-17.5); LYMPH # 1.1 x10^3/uL (1.0-4.8); LYMPH % 8 % (24-48); MEAN CORPUSCULAR HEMOGLOBIN 31 pg (25-35); MEAN CORPUSCULAR HGB CONC 33 g/dL (31-37); MEAN CORPUSCULAR VOLUME 96 fL (79-100); MONO % 7 % (0-9); NEUT # 11.4 x10^3uL (1.8-7.7); NEUT % 84 % (31-73); RED BLOOD COUNT 3.27 x10^6/uL (4.30-5.70); RED CELL DISTRIBUTION WIDTH 17.7 % (11.5-14.5); WHITE BLOOD COUNT 13.7 x10^3/uL (4.0-11.0)
--- NOTE | 2018-03-18 16:19 | RAD ---
Chest radiograph 03/18/2018 4:05 PM INDICATION: Fever, hypoxia COMPARISON: Chest radiograph February 23, 2018 TECHNIQUE: Frontal and lateral views of the chest are provided. FINDINGS: The cardiomediastinal silhouette is within normal limits. Right upper lobe patchy airspace disease may represent pulmonary infiltrate. Mild interstitial changes are noted at the lung bases, likely chronic. There are no pleural effusions. No pulmonary vascular congestion or pneumothorax.. IMPRESSION: Suspect a right upper lobe pulmonary infiltrate. Short-term follow-up two-view chest radiograph is recommended to enter resolution. There may be underlying nodular airspace disease which appears chronic in the right upper lobe. Bibasilar chronic interstitial changes appears stable. Electronically signed by: Heidi Mcpherson MD (03/18/2018 4:16 PM) [facility]
[2018-03-18 16:33] LABS: ALBUMIN/GLOBULIN RATIO 0.7 (1.0-1.7); CALCIUM 9.4 mg/dL (8.5-10.1); GFR 31.8; POTASSIUM 4.3 mmol/L (3.5-5.1); TOTAL BILIRUBIN 0.4 mg/dL (0.2-1.0); TOTAL PROTEIN 7.1 g/dL (6.4-8.2)
[2018-03-18 16:51] LABS: BILIRUBIN,URINE NEG (NEG); CLARITY,URINE TURBID; COLOR,URINE YELLOW; GLUCOSE,URINE NEG (NEG)
[2018-03-18 16:52] LABS: BACTERIA,URINE 0 /HPF (0-FEW); NITRITE,URINE POS (NEG); UROBILINOGEN,URINE 0.2 mg/dL (0.2 mg/dL); WBC,URINE TNTC /HPF (0-4)
[2018-03-18 18:49] VITALS: BP 120/60
[2018-03-18 19:15] LABS: % BANDS 8 % (0-9); % LYMPHS 6 % (24-48); % METAS 1 % (0-0); % MONOS 7 % (0-10); % MYELOS 1 % (0-0); % SEGS 77 % (35-66)
[2018-03-18 19:16] LABS: PLT ESTIMATE INCREASED (ADEQUATE)
[2018-03-18 19:25] LABS: POLYCHROMASIA PRESENT
[2018-03-18 19:28] LABS: ANISOCYTOSIS PRESENT
[2018-03-18 19:35] LABS: OVALOCYTES FEW
[2018-03-18 19:37] LABS: PLATELET CLUMP PRESENT
[2018-03-25 15:54] LABS: PLATELET COUNT 1122 x10^3/uL (140-400)
== END 2018-03-18 18:54 | disposition short-term general hospital (02) ==
LOC: ER 15:09
DX: A41.9 Sepsis, unspecified organism (principal); N39.0 Urinary tract infection, site not specified; D47.3 Essential (hemorrhagic) thrombocythemia; Z93.6 Other artificial openings of urinary tract status; Z87.891 Personal history of nicotine dependence; Z88.0 Allergy status to penicillin
CPT/HCPCS: 36415; 71046; 80053; 81001; 82553; 83605; 84145; 84484; 85007; 85025; 87040; 93005; 96361; 96365; 96375; 99285; J1885; J1956; J7030

== ENCOUNTER → 2018-12-29 | Outpatient (CLI) | payer MEDICARE ==
--- NOTE | 2018-12-29 11:55 | RAD ---
CT of the abdomen and pelvis without contrast, 12/29/2018: HISTORY: Hematuria, kidney stones, prostate cancer Noncontrast scans were obtained and compared to a study from 12/17/2017. There are several irregular pulmonary nodules in the lung bases which are new. These include a 16 mm nodule in the right lower lobe and an 18 mm nodule in the left lower lobe. There are chronic streaky basilar parenchymal opacities compatible with scarring. There is pleural thickening and/or atelectasis in the posterior costophrenic angle on the left. Moderate coronary artery calcifications are present. Two small unchanged subcentimeter low-density lesions in the liver cannot be definitively characterized but are most likely cysts. The unopacified liver is otherwise unremarkable. No gallbladder abnormality is seen. There are several punctate calcifications in the pancreatic head. No pancreatic mass is evident. The spleen is of normal size. It contains several low density lesions which may also be cysts. A right nephrostomy tube has been placed. The right renal collecting system and ureter are not dilated. There is right renal scarring. On the left, a ureteral stent has been placed with its upper pigtail lying near the level of the ureteropelvic junction and its lower end extending into the anterior aspect of the urinary bladder. The left renal pelvis and upper ureter are dilated, although less so than on the previous study. The left renal pelvis and dilated proximal ureter contain primarily high density material with a CT number of approximately 50 Hounsfield units. This suggests hemorrhage, although an underlying solid mass cannot be excluded. There is a smaller component of fluid type density in the left renal pelvis. Moderate streaky left perinephric densities have developed compatible with inflammation. There is an elongated nodular density along the left posterior lateral margin of the left kidney as seen on image 64 of series #2. Portions of this process are of low density compatible with fluid. This may represent and old nephrostomy tube tract. Correlation with the patient's surgical history is suggested. There is moderate aortoiliac calcific plaquing with mild unchanged dilatation of the infrarenal abdominal aorta. It measures approximately 3.8 cm in greatest AP dimension. Several small periaortic lymph nodes are seen without evidence of pathologic enlargement. No iliac or inguinal adenopathy is delineated. The bladder is collapsed. It is thick-walled, likely related to its nondistended state. The prostate gland is small. There is mild dilatation of the left inguinal ring without evidence of bowel herniation. The bowel loops are not dilated. There is a trace amount of free fluid in the pelvis. No free intra-abdominal gas is seen. Moderate scattered degenerative changes are present in the spine IMPRESSION: 1. New small spiculated bibasilar pulmonary nodules may be metastatic or inflammatory. 2. A left ureteral stent has been placed with residual dilatation of the left renal pelvis and proximal ureter containing high density material, likely blood clot. Underlying neoplasm cannot be excluded. 3. Moderate left perinephric edema. 4. Probable old left nephrostomy tube tract containing a small amount of fluid. 5. Right nephrostomy tube in place without evidence of right hydronephrosis. 6. Stable infrarenal abdominal aortic aneurysm. 7. Trace amount of free fluid in the pelvis. 8. Additional chronic findings as described above. PQRS Compliance Statement: One or more of the following individualized dose reduction techniques were utilized for this examination: 1. Automated exposure control 2. Adjustment of the mA and/or kV according to patient size 3. Use of iterative reconstruction technique Electronically signed by: Josh Alarcon MD (12/29/2018 11:53 AM) [facility]
== END | disposition home or self-care (01) ==
LOC: CT 10:27
PROVIDERS: ATTEND Physician Assistant
DX: I71.4 Abdominal aortic aneurysm, without rupture (principal); I25.10 Atherosclerotic heart disease of native coronary artery without angina pectoris; R60.0 Localized edema; R91.8 Other nonspecific abnormal finding of lung field; Z85.46 Personal history of malignant neoplasm of prostate; Z87.442 Personal history of urinary calculi
CPT/HCPCS: 74176

== ENCOUNTER → 2019-02-02 | Outpatient (CLI) | payer MEDICARE ==
[~2019-02-02] MED LIST changes: +IOHEXOL 240 MG/ML 50ML VIAL. ONE; +IOHEXOL 300 MG/ML 75 ML VIAL. ONE
[2019-02-02] MEDS: IOHEXOL 300 MG/ML 75 ML VIAL. IV ONE (12:26)
[2019-02-02] MEDS: IOHEXOL 240 MG/ML 50ML VIAL. PO ONE (12:27)
--- NOTE | 2019-02-02 13:05 | RAD ---
CT CHEST ABD PELVIS W/CONTRAST Indication: Prostate cancer, metastases Technique: Postcontrast CT imaging was performed of the chest, abdomen, pelvis, multiplanar reconstruction images submitted. Oral contrast was also given. One or more of the following individualized dose reduction techniques were utilized for this examination: 1. Automated exposure control 2. Adjustment of the mA and/or kV according to patient size 3. Use of iterative reconstruction technique. Comparison: Chest CT March 12, 2018; December 29, 2018 CT abdomen pelvis exam CHEST: Findings: There is been variable change of previously seen pulmonary nodules/masses. While previously seen nodules are overall smaller, there are several new nodule/masses bilaterally which have irregular margins. These have a more nodular appearance than would be expected with foci from infiltrates. One of the largest right lower lobe lesions measures about 2.5 cm AP by 2.1 cm transverse by 2 cm CC best seen axial image 66 series 4. Another lesion of the right lower lobe abutting the major fissure pleural surface measures about 2.1 cm transverse by 2.4 cm AP by 2.4 cm CC image 53 series 4. Dominant left lower lobe lesion measures about 2.1 cm transverse by 1.9 cm AP by about 1.9 cm cc, seen on image 77 series 4. There is no pleural fluid or pneumothorax. There is prominent coronary calcification. There is some emphysema with upper zone predominance. There is increased sclerosis of right lateral sixth rib at site of nondisplaced fracture, similar deformity of right lateral seventh rib, and fairly similar degree of sclerosis of the right lateral eighth rib. There is increased sclerosis of the posterior right proximal fifth. Previously there was an expansile mass of right posterior sixth rib no longer visualized. There is multilevel thoracic degenerative disc disease and spondylosis. Somewhat ectatic ascending thoracic aorta about 3.8 cm is unchanged, no intraluminal flap, scattered plaque present. Small 0.5 cm hypodense lesion posterior right thyroid gland is similar. IMPRESSION: 1. While previously seen pulmonary masses have decreased, there are several new, irregular appearing pulmonary masses bilaterally. There is some increased sclerosis of right lateral sixth rib at site of nondisplaced fracture, also some increased sclerosis of the right posterior fifth rib although previously seen expansile mass of the posterior right sixth rib is no longer visualized.. 2. There is prominent coronary calcification. Abdomen pelvis: FINDINGS: There is now left nephrostomy, removal of previously seen left ureteral stent. Previously seen strandy change of the left perinephric fat has decreased. There is again right nephrostomy. There is no significant hydronephrosis. There is again tract of fluid density coursing posterolateral to the inferior left kidney overall similar in appearance. There is again some cystic change of the inferior left kidney, estimated about 3.7 cm greatest dimension. There is a small 0.2 cm calculus in the inferior left renal parenchyma. There is subcapsular focus of relative hypodensity more anteriorly of the left kidney with internal fluid density measurements more likely related to sequela of liquefied subcapsular hematoma, greatest dimension about 1 cm x 2.8 cm in axial oblique dimensions by 2.7 cm longitudinal. There is a 1.2 cm right renal cyst superiorly. There are again scattered small foci of hypodensity of the spleen not convincingly changed, largest about 1 cm in size with cystic characteristics. Smaller foci are difficult to accurately characterize. There are also a few small hypodense foci of the liver difficult to accurately characterize although similar, largest 0.5 cm. Gallbladder is present without obvious intraluminal abnormality by CT. There is no significant adrenal nodularity. There is no new abnormality of the pancreas. There is again infrarenal abdominal aortic aneurysm up to about 3.8 cm maximal axial dimension, similar. Ectatic right common iliac artery measures about 1.9 cm, left about 1.6 cm. There is scattered plaque of the abdominal aorta as well as of the iliac arteries bilaterally. Bowel is not significantly dilated. There is no free air. There is increased hazy and strandy change of the perirectal fat. There is increased minimal dependent free fluid posteriorly in the pelvis. There is some similar nonspecific strandy change along the left iliopsoas musculature and more inferiorly. There are some scattered small retroperitoneal nodes overall similar. Urinary bladder is not significantly distended. There is multilevel fairly advanced lumbar degenerative disc disease, also facet degenerative change greater inferiorly of the lumbar spine. There is bone demineralization. There is a lytic lesion along of the posterior aspect of the right inferior pubic ramus as seen previously about 1.7 cm, was not present on 2013 exam. There is some calcifications posterior to the region of pubic symphysis. IMPRESSION: 1. There is nonspecific increased hazy and strandy change of the perirectal fat which could be associated with inflammation. There is also very minimal dependent free fluid in the pelvis. 2. There is now left nephrostomy, removal of previously seen left ureteral stent. Focus of subcapsular dense of the anterior left kidney is likely sequela of partially liquefied subcapsular hematoma. Cystic focus of the inferior left kidney with adjacent to tract of fluid density is similar in appearance. There is again right nephrostomy. 3. There is again infrarenal abdominal aortic aneurysm about 3.8 cm maximal dimension. 4. 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 Electronically signed by: Chas Kinney MD (02/02/2019 1:02 PM) [id number]
== END | disposition home or self-care (01) ==
LOC: NM 08:15
PROVIDERS: ATTEND Internal Medicine Hematology & Oncology
DX: C61 Malignant neoplasm of prostate (principal); I71.4 Abdominal aortic aneurysm, without rupture; M81.0 Age-related osteoporosis without current pathological fracture; I70.0 Atherosclerosis of aorta; N28.1 Cyst of kidney, acquired; N20.0 Calculus of kidney; I25.10 Atherosclerotic heart disease of native coronary artery without angina pectoris; M51.34 Other intervertebral disc degeneration, thoracic region; M51.36 Other intervertebral disc degeneration, lumbar region; M47.816 Spondylosis without myelopathy or radiculopathy, lumbar region; M47.814 Spondylosis without myelopathy or radiculopathy, thoracic region; J43.9 Emphysema, unspecified; R91.8 Other nonspecific abnormal finding of lung field
CPT/HCPCS: 71260; 74177; Q9966; Q9967

== ENCOUNTER → 2019-04-04 | Outpatient (CLI) | payer MEDICARE ==
[~2019-04-04] MED LIST changes: -IOHEXOL 240 MG/ML 50ML VIAL. ONE; -IOHEXOL 300 MG/ML 75 ML VIAL. ONE
[2019-04-04 13:03] LABS: BASO % 0 % (0-3); EOS % 0 % (0-3); HEMATOCRIT 23.1 % (39.0-53.0); HEMOGLOBIN 7.5 g/dL (13.0-17.5); LYMPH # 1.4 x10^3/uL (1.0-4.8); LYMPH % 13 % (24-48); MEAN CORPUSCULAR HEMOGLOBIN 33 pg (25-35); MEAN CORPUSCULAR HGB CONC 32 g/dL (31-37); MEAN CORPUSCULAR VOLUME 102 fL (79-100); MONO # 0.9 x10^3/uL (0.0-1.1); MONO % 8 % (0-9); NEUT # 8.6 x10^3uL (1.8-7.7); NEUT % 79 % (31-73); PLATELET COUNT 486 x10^3/uL (140-400); RED BLOOD COUNT 2.28 x10^6/uL (4.30-5.70)
[2019-04-04 14:15] LABS: % BANDS 8 % (0-9); % LYMPHS 12 % (24-48); % MONOS 8 % (0-10); % SEGS 72 % (35-66); PLT ESTIMATE INCREASED (ADEQUATE)
[2019-04-04 14:18] LABS: ANISOCYTOSIS MOD; HYPOCHROMIA SLIGHT; MICROCYTOSIS MOD; OVALOCYTES OCC; PLATELET CLUMP PRESENT; POLYCHROMASIA SLIGHT; TARGET CELLS OCC; TEAR DROP CELLS OCC
== END | disposition home or self-care (01) ==
LOC: LAB 12:10
PROVIDERS: ATTEND Internal Medicine Hematology & Oncology
DX: C67.5 Malignant neoplasm of bladder neck (principal)
CPT/HCPCS: 36415; 85007; 85025